=== PATIENT | female | born 1955 | race Caucasian/White ===

== ENCOUNTER → 2017-03-22 | Outpatient (CLI) | payer OTHER ==
--- NOTE | 2017-03-22 12:28 | KCIC ---
EXAM: Left hip, 2 views; lumbar spine, 3 views. HISTORY: Pain. COMPARISON: None. FINDINGS: Left hip: Frontal and frog leg views of the left hip are obtained. There is no fracture, dislocation or subluxation. Lumbar spine: Frontal, lateral and cone sacral views of the lumbar spine are obtained. There is a transitional lumbosacral segment. Based on suspected hypoplastic T12 ribs, this is considered a partially sacralized L5 segment. 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 There is moderate lumbar levoscoliosis. There is grade 1 anterolisthesis of L3 on L4 and L4-L5, measuring 2 mm. There is a prominent inferior endplate Schmorl's node at L2. There is facet arthropathy on the right at L3-L4 and bilaterally at L4-L5. IMPRESSION: 1. No acute osseous finding. 2. Transitional lumbosacral segment, considered a partially sacralized L5 segment for this dictation. Based on this number and system, there is minimal grade 1 anterolisthesis of L3 on L4 and L4 on L5 and facet arthropathy on the right at L3-L4 and bilaterally at L4-L5. Electronically signed by: Toyin Almendarez MD (03/22/2017 12:25 PM)
== END | disposition home or self-care (01) ==
LOC: KCIC 10:43
PROVIDERS: ATTEND Nurse Practitioner Family
DX: M12.88 Other specific arthropathies, not elsewhere classified, other specified site (principal); M62.830 Muscle spasm of back; M53.3 Sacrococcygeal disorders, not elsewhere classified
CPT/HCPCS: 72100; 73502